=== PATIENT | male | born 1965 | race Hispanic/Latino ===

== ENCOUNTER 2017-11-10 21:35 | Emergency (ER) | payer SELFPAY ==
[2017-11-10] MEDS ORDERED: Lidocaine 2% Jelly 5 ML TUBE ONE (22:57)
== END 2017-11-10 23:12 | disposition home or self-care (01) ==
LOC: ERS 21:35
DX: K60.2 Anal fissure, unspecified (principal)
CPT/HCPCS: 99283

== ENCOUNTER 2018-05-04 06:36 | Day surgery (SDC) | payer OTHER ==
--- NOTE | 2018-05-04 00:11 | HP ---
SHORT STAY HISTORY AND PHYSICAL DATE OF ADMISSION: 05/04/2018 HISTORY OF PRESENT ILLNESS: This is a 52-year-old [place] male with history of hematochezia. The bleeding occurred few weeks ago. The bleeding was painless. He does have a history of constipa tion and strain during bowel movements. The patient has had no abdominal pain. He has no family his tory of colon cancer. The patient comes in for a colonoscopy because of hematochezia. ALLERGIES: None. SOCIAL HISTORY: The patient smokes 2 cigarettes per day. Drinks alcohol 3 beers every other day. MEDICAL ILLNESSES: None. PAST SURGICAL HISTORY: None. PHYSICAL EXAMINATION: VITAL SIGNS: Pulse is 70, blood pressure 130/80. HEENT: Conjunctivae clear. CARDIOVASCULAR SYSTEM: First and second heart sounds normal. LUNGS: Clear to auscultation. ABDOMEN: Soft to palpate. No organomegaly. No tenderness. No masses. EXTREMITIES: Reveal no edema. ADMITTING DIAGNOSIS: Rectal bleeding. PLAN: Colonoscopy.
[2018-05-04] MEDS ORDERED: Fleet Enema 133 ML BOT FS SCH (07:30)
[2018-05-04] MEDS ORDERED: PROPOFOL 200 MG/20 ML VIAL ONE (11:11)
--- NOTE | 2018-05-04 11:26 | OP ---
DATE OF PROCEDURE: 05/04/2018 SURGEON: Angelica Chavez M.D. OPERATIVE PROCEDURE: Colonoscopy with polypectomy with biopsy forceps. PREOPERATIVE DIAGNOSIS: A 52-year-old with hematochezia undergoing colonoscopy. POSTOPERATIVE DIAGNOSES: 1. Small sessile sigmoid polyp removed with biopsy forceps. 2. Hemorrhoids. OPERATIVE PROCEDURE IN DETAIL: The patient was placed on his left lateral position and was given sed ation by Anesthesia Department. A rectal exam was done before the scope was advanced into the rectum . No lesions felt on rectal exam. A Pentax video colonoscope was introduced into the rectum and adv anced all the way into the cecum. The prep is fair. The patient has fecal material that easily wash ed out. The mucosa appeared normal through the colon. The appendical orifice, ileocecal valve, cecu m, no pathology seen. Withdrawal of scope in cecum, ascending colon, hepatic flexure, no pathology s een. The transverse colon, splenic flexure, and descending colon, no pathology seen. Over the lower sigmoid colon area, the patient found to have a small sessile polyp. This was removed with biopsy f orceps. Rectum showed hemorrhoids. DISCHARGE PLANNING: This is a 52-year-old male who came for colonoscopy because of he matochezia. The colonoscopy showed a small sessile sigmoid polyp which was removed and also for hemo rrhoids. DISCHARGE RECOMMENDATIONS: 1. High-fiber diet. 2. Metamucil.
== END 2018-05-04 10:57 | disposition home or self-care (01) ==
LOC: SDC 06:36
PROVIDERS: ATTEND Internal Medicine Gastroenterology
PROC: 0DBN8ZX Excision of Sigmoid Colon, Via Natural or Artificial Opening Endoscopic, Diagnostic (ICD-10-PCS; principal; 2018-05-04)
DX: D12.5 Benign neoplasm of sigmoid colon (principal); K64.9 Unspecified hemorrhoids; F17.210 Nicotine dependence, cigarettes, uncomplicated
CPT/HCPCS: 88305; J2704

== ENCOUNTER 2021-12-02 08:18 | Outpatient (CLI) | payer SELFPAY ==
[2021-12-02 10:13] LABS: Bilirubin Neg (Negative); Blood, Urine 10 (Negative); Clarity Clear (Clear); Glucose, Urine (Dipstick) Normal (Negative); Ketone, Urine Negative (Negative); Leukocyte Negative (Negative); Nitrite Negative (Negative); Protein, Urine (Dipstick) 15 mg/dl (Neg-Trace); Urobilinogen Normal mg/dL (Less than 2)
[2021-12-02 10:33] LABS: Hemoglobin 14.7 g/dL (13.5-17.5); Mean Corpuscular HGB CONC 33.5 g/dL (32.0-36.0); Mean Corpuscular Hemoglobin 32.2 pg (27.0-33.0); Mean Corpuscular Volume 96.1 fl (81.2-95.1); Mean Platelet Volume 10.3 fl (7.4-10.4); Platelet Count 265 10x3/uL (150-450); RBC Distribution Width 12.7 % (11.5-14.5); Red Blood Cell (RBC) Count 4.57 10x6/uL (4.32-5.72); White Blood Cell (WBC) Count 5.5 10x3/uL (3.5-10.5)
[2021-12-02 10:40] LABS: Bacteria/HPF None Seen HPF (None Seen); RBC/HPF 0-3 HPF (0-3); Squamous Epithelial None Seen HPF (0-3); WBC/HPF None Seen HPF (0-3)
[2021-12-02 11:10] LABS: PTT 27.9 sec (22.0-33.0); Prothrombin Time 10.7 sec (9.5-12.1)
[2021-12-02 11:12] LABS: Anion Gap 11 mmol/L (10-20); BUN (Urea Nitrogen) 17 mg/dL (8.4-25.7); Calc. Creatinine Clearance 0 mL/min (70-130); Calcium 8.7 mg/dL (7.8-10.44); Carbon Dioxide 25 mmol/L (22-29); Chloride 105 mmol/L (98-107); Glucose 88 mg/dL (70-105); Potassium 4.1 mmol/L (3.5-5.1); Sodium 137 mmol/L (136-145)
[2021-12-02 22:32] LABS: SARS-CoV-2 PCR by NAA DETECTED (NotDetected)
== END 2021-12-02 08:19 | disposition home or self-care (01) ==
LOC: LABBT 08:18
PROVIDERS: ATTEND Urology
DX: Z01.818 Encounter for other preprocedural examination (principal); U07.1 COVID-19; N32.0 Bladder-neck obstruction; R35.0 Frequency of micturition; N39.41 Urge incontinence; R10.32 Left lower quadrant pain
CPT/HCPCS: 80048; 81001; 85027; 85610; 85730; 87086; 93005; 93010; U0003; U0005

== ENCOUNTER 2022-01-05 07:39 | Outpatient (CLI) | payer OTHER, SELFPAY ==
[2022-01-05 09:07] LABS: Bilirubin Neg (Negative); Blood, Urine 10 (Negative); Clarity Clear (Clear); Glucose, Urine (Dipstick) Normal (Negative); Ketone, Urine Negative (Negative); Leukocyte Negative (Negative); Nitrite Negative (Negative); Protein, Urine (Dipstick) Negative (Neg-Trace); Urobilinogen Normal mg/dL (Less than 2)
[2022-01-05 09:26] LABS: INR-International Normal Ratio 0.9; PTT 27.8 sec (22.0-33.0); Prothrombin Time 10.4 sec (9.5-12.1)
[2022-01-05 09:27] LABS: Hemoglobin 14.3 g/dL (13.5-17.5); Mean Corpuscular HGB CONC 32.7 g/dL (32.0-36.0); Mean Corpuscular Hemoglobin 31.7 pg (27.0-33.0); Mean Corpuscular Volume 96.9 fl (81.2-95.1); Mean Platelet Volume 10.5 fl (7.4-10.4); Platelet Count 287 10x3/uL (150-450); Red Blood Cell (RBC) Count 4.51 10x6/uL (4.32-5.72); White Blood Cell (WBC) Count 5.7 10x3/uL (3.5-10.5)
[2022-01-05 09:31] LABS: Bacteria/HPF None Seen HPF (None Seen); RBC/HPF 0-3 HPF (0-3); Squamous Epithelial None Seen HPF (0-3); WBC/HPF None Seen HPF (0-3)
[2022-01-05 09:51] LABS: Anion Gap 14 mmol/L (10-20); BUN (Urea Nitrogen) 15 mg/dL (8.4-25.7); Calc. Creatinine Clearance 0 mL/min (70-130); Calcium 9.2 mg/dL (7.8-10.44); Carbon Dioxide 23 mmol/L (22-29); Chloride 107 mmol/L (98-107); Glucose 103 mg/dL (70-105); Potassium 4.5 mmol/L (3.5-5.1); Sodium 139 mmol/L (136-145)
[2022-01-05 17:30] LABS: SARS-CoV-2 PCR by NAA Not Detected (NotDetected)
== END 2022-01-05 07:40 | disposition home or self-care (01) ==
LOC: LABBT 07:39
PROVIDERS: ATTEND Urology
DX: Z01.818 Encounter for other preprocedural examination (principal); N40.1 Benign prostatic hyperplasia with lower urinary tract symptoms; Z20.822 Contact with and (suspected) exposure to COVID-19
CPT/HCPCS: 80048; 81001; 85027; 85610; 85730; 87086; 93005; 93010; U0003; U0005

== ENCOUNTER 2022-01-08 08:13 | Day surgery (SDC) | payer SELFPAY ==
[2022-01-08] MEDS ORDERED: B & O ONE (10:14)
[2022-01-08] MEDS ORDERED: Fentanyl 250 MCG/5 ML VIAL ONE ×2 (10:20→11:44)
[2022-01-08] MEDS ORDERED: Levofloxacin 500 mg/D5W 100 ml Premix Bag ONE (10:21)
[2022-01-08] MEDS ORDERED: PROPOFOL 200 MG/20 ML VIAL ONE (10:31)
[2022-01-08] MEDS ORDERED: Lidocaine 1% PF 5 ML VIAL ONE (10:31)
[2022-01-08] MEDS ORDERED: PHENYLEPHRINE-NS 100 MCG/ML 10 ML SYRINGE ONE (10:31)
[2022-01-08] MEDS ORDERED: Ondansetron PF 4 MG/2 ML Vial ONE (10:31)
[2022-01-08] MEDS ORDERED: Dexamethasone 20 MG/5 ML VIAL ONE (10:31)
== END 2022-01-08 13:33 | disposition home or self-care (01) ==
LOC: SDC 08:13
PROVIDERS: ATTEND Urology
PROC: 0V507ZZ Destruction of Prostate, Via Natural or Artificial Opening (ICD-10-PCS; principal; 2022-01-08)
DX: N40.1 Benign prostatic hyperplasia with lower urinary tract symptoms (principal); N13.8 Other obstructive and reflux uropathy; F17.200 Nicotine dependence, unspecified, uncomplicated; Z79.899 Other long term (current) drug therapy
CPT/HCPCS: J1100; J1956; J2405; J2704; J3010